=== PATIENT | male | born 1965 | race Two or more races ===

== ENCOUNTER 2018-04-11 08:42 | Day surgery (SDC) | payer OTHER ==
[~2018-04-11 08:42] MED LIST: Lactated Ringers 1,000 ML IV SCH; Lidocaine 2% 5 ML SDV ONE; Midazolam 1 MG/ML 2 ML SDV ONE; Propofol 200 MG/20 ML SDV ONE; Sodium Chloride 0.9% 10 ML Syringe FLUSH PRN; Sodium Chloride 0.9% 2.5 ML Syringe FLUSH PRN; fentaNYL 100 MCG/2 ML SDV ONE
--- NOTE | 2018-04-11 09:01 | PCM.PREANE ---
Preanesthetic Assessment - Anesthesia/Transfusion/Family Hx Anesthesia History: No Prior Anesthesia Family History of Anesthesia Reaction: No Transfusion History: No Prior Transfusion(s) Intubation History: Unknown - Review of Systems General: No Symptoms Pulmonary: No Symptoms Cardiovascular: No Symptoms Gastrointestinal: No Symptoms, Other (screening colonoscopy) Neurological: No Symptoms Other: Reports: None - Physical Assessment Height: 1.65 m Weight: 76.204 kg ASA Class: 1 Mental Status: Alert & Oriented x3 Airway Class: Mallampati = 2 Dentition: Reports: Normal Dentition Thyro-Mental Finger Breadths: 3 Mouth Opening Finger Breadths: 2 ROM/Head Extension: Full Lungs: Clear to Auscultation, Normal Respiratory Effort Cardiovascular: Regular Rate, Regular Rhythm - Allergies Allergies/Adverse Reactions: Allergies Allergy/AdvReac Type Severity Reaction Status Date / Time No Known Allergies Allergy Verified 04/07/18 09:46 - Blood Blood Available: No - Anesthesia Plan Pre-Op Medication Ordered: None - Acknowledgements Anesthesia Type Planned: MAC Pt an Appropriate Candidate for the Planned Anesthesia: Yes Alternatives and Risks of Anesthesia Discussed w Pt/Guardian: Yes Pt/Guardian Understands and Agrees with Anesthesia Plan: Yes PreAnesthesia Questionnaire HEENT History: Reports: Other (See Below) Other HEENT History: wears glasses Musculoskeletal History: Reports: Back Pain, Chronic - Past Surgical History HEENT Surgical History: Reports: Other (See Below) Other HEENT Surgeries/Procedures: hx of syncope, suturing of scalp laceration - SUBSTANCE USE Smoking Status *Q: Never Smoker Recreational Drug Use History: No - HOME MEDS Home Medications: Home Meds . [No Known Home Meds] 04/07/18 [History] - CURRENT (IN HOUSE) MEDS Current Meds: Current Medications Lactated Ringer's (Ringers, Lactated) 1,000 mls @ 125 mls/hr IV ASDIRECTED KARLY Sodium Chloride (Saline Flush) 10 ml FLUSH ASDIRECTED PRN PRN Reason: Keep Vein Open Sodium Chloride (Saline Flush) 2.5 ml FLUSH ASDIRECTED PRN PRN Reason: Keep Vein Open Sodium Chloride (Saline Flush) 10 ml FLUSH ASDIRECTED PRN PRN Reason: Keep Vein Open Sodium Chloride (Saline Flush) 2.5 ml FLUSH ASDIRECTED PRN PRN Reason: Keep Vein Open Discontinued Medications Fentanyl (Sublimaze) Confirm Administered Dose 100 mcg .ROUTE .STK-MED ONE Stop: 04/11/18 08:22 Lidocaine (Xylocaine-Mpf 2%) Confirm Administered Dose 5 ml .ROUTE .STK-MED ONE Stop: 04/11/18 08:22 Midazolam HCl (Versed 1 Mg/Ml) Confirm Administered Dose 2 mg .ROUTE .STK-MED ONE Stop: 04/11/18 08:22 Propofol (Diprivan 20 Ml) Confirm Administered Dose 200 mg .ROUTE .STK-MED ONE Stop: 04/11/18 08:21
[2018-04-11] MEDS ORDERED: Glycopyrrolate 0.2 MG/ML SDV ONE (10:25)
--- NOTE | 2018-04-11 10:28 | PCM.POSTAN ---
POST ANESTHESIA ASSESSMENT - MENTAL STATUS Mental Status: Alert, Oriented - RESPIRATORY Respiratory Status: Respiratory Rate WNL, Airway Patent, O2 Saturation Stable - CARDIOVASCULAR CV Status: Pulse Rate WNL, Blood Pressure Stable - GASTROINTESTINAL GI Status: No Symptoms - POST OP HYDRATION Hydration Status: Adequate & Stable
--- NOTE | 2018-04-11 10:29 | PCM48HPAN ---
Post Anesthesia Note - EVALUATION WITHIN 48HRS OF ANESTHETIC Vital Signs in Normal Range: Yes Patient Participated in Evaluation: Yes Respiratory Function Stable: Yes Airway Patent: Yes Cardiovascular Function Stable: Yes Hydration Status Stable: Yes Pain Control Satisfactory: Yes Nausea and Vomiting Control Satisfactory: Yes Mental Status Recovered: Yes Resp Rate: 16
[2018-04-11] MEDS ORDERED: Sodium Chloride 0.9% 10 ML Syringe FLUSH PRN (10:48)
[2018-04-11] MEDS ORDERED: Sodium Chloride 0.9% 2.5 ML Syringe FLUSH PRN (10:48)
[2018-04-11] MEDS ORDERED: Ondansetron 4 MG/2 ML SDV IVPUSH PRN (10:48)
--- NOTE | 2018-04-11 10:55 | PCM.OPNOTE ---
- General Post-Op/Procedure Note Date of Surgery/Procedure: 04/11/18 Operative Procedure(s): Colonoscopy with cold sigmoid colon polypectomy Pre Op Diagnosis: Desire for colorectal cancer screening Post-Op Diagnosis: Sigmoid polyp Anesthesia Technique: MAC (ASA I) Primary Surgeon: Anthony Gonzales Assemblyman Or Woman: Sai Serrano Condition: Good Free Text/Narrative:: DICTATION [id number] CPT CODE [id number]
--- NOTE | 2018-04-11 12:38 | OR ---
SURGEON: Anthony Gonzales M.D. DATE OF PROCEDURE: 04/11/2018 OPERATION PERFORMED: Colonoscopy with cold sigmoid colon polypectomy. MARKETING DEVELOPER: Dr. Otero, PGY2 ANESTHESIA: MAC. ASA CLASSIFICATION: I. PREOPERATIVE DIAGNOSIS: Desire for colorectal cancer screening. POSTOPERATIVE DIAGNOSIS: Sigmoid polyp. DESCRIPTION OF PROCEDURE: The patient was taken to the endoscopy room, positioned on the endoscopy table in the left lateral decubitus position. Time-out was called for appropriate identification of the patient and procedure. Monitored anesthesia care was provided. The colonoscope was inserted into the rectum and advanced with minimal difficulty to the cecum where the colonoscope was retroflexed to visualize the ascending colon from below. The colonoscope was then straightened and slowly withdrawn. The cecum, ascending colon, hepatic flexure, transverse colon, splenic flexure, and descending colon showed no tumors, polyps, diverticula, or angiodysplastic changes. One small polyp was encountered in the sigmoid colon, and this was removed with the cold biopsy forceps. The colonoscope was withdrawn to the rectum and retroflexed to visualize the anal orifice from above. Again no tumors or polyps were seen and there were no acute hemorrhoidal changes. The colonoscope was then straightened, the rectum aspirated, and the colonoscope removed. The patient tolerated the procedure well and was taken to recovery room in satisfactory condition. NELLY GRIFFITH /[id number]
== END 2018-04-11 11:56 | disposition home or self-care (01) ==
LOC: MW.SDS 08:42
PROVIDERS: ATTEND Surgery
DX: Z12.11 Encounter for screening for malignant neoplasm of colon (principal); D12.5 Benign neoplasm of sigmoid colon
CPT/HCPCS: 45380; 88305; J2250; J2704; J3010; J3490; J7120

== ENCOUNTER 2023-05-07 08:06 | Day surgery (SDC) | payer OTHER ==
[~2023-05-07 08:06] MED LIST changes: -Lidocaine 2% 5 ML SDV ONE; -Midazolam 1 MG/ML 2 ML SDV ONE; -Propofol 200 MG/20 ML SDV ONE; -Sodium Chloride 0.9% 10 ML Syringe FLUSH PRN; -Sodium Chloride 0.9% 2.5 ML Syringe FLUSH PRN; -fentaNYL 100 MCG/2 ML SDV ONE
[2023-05-07] MEDS ORDERED: propofoL 50 ML ONE (08:54)
[2023-05-07] MEDS ORDERED: Lactated Ringers 1,000 ML IV SCH (09:30)
[2023-05-07] MEDS ORDERED: Atropine 1 MG/ML SDV ONE (09:45)
[2023-05-07] MEDS ORDERED: ePHEDrine 50 MG/ML SDV ONE (09:45)
[2023-05-07] MEDS ORDERED: Glycopyrrolate 0.2 MG/ML SDV ONE (09:45)
== END 2023-05-07 10:20 | disposition home or self-care (01) ==
LOC: MW.SDS 08:06
PROVIDERS: ATTEND Surgery
DX: Z12.11 Encounter for screening for malignant neoplasm of colon (principal); I10 Essential (primary) hypertension; Z86.010 Personal history of colon polyps; Z79.899 Other long term (current) drug therapy; Z82.49 Family history of ischemic heart disease and other diseases of the circulatory system; Z78.9 Other specified health status
CPT/HCPCS: 45378; J2704; J3490; J7120; 00812; J0461